=== PATIENT | female | born 1965 | race Two or more races ===

== ENCOUNTER 2022-10-09 10:30 | Inpatient (IN) | payer OTHER ==
[~2022-10-09] VITALS: Ht 175.3 cm; Wt 97.5 kg
[2022-10-09] MEDS ORDERED: ORAPRED ODT10 MG PO (13:30)
[2022-10-09] MEDS ORDERED: COZAAR100 MG PO (13:30)
[2022-10-09] MEDS ORDERED: SINGULAIR 10MG10 MG PO (13:31)
[2022-10-12] MEDS ORDERED: LEVOTHYROXINE125 MCG (07:52)
[2022-10-12] MEDS ORDERED: PREDNISONE2.5 MG (07:52)
== END 2022-10-13 13:25 | disposition home or self-care (01) | DRG 742 ==
LOC: ADM 10:30 → EDSTATUS 10:30 → O/R 10-11 05:50 → OB/GYN 10-11 05:50 → SURG 10-11 07:00 → OB/GYN 10-11 11:46
PROVIDERS: ADMIT Specialist; ATTEND Specialist
PROC: 0UT70ZZ Resection of Bilateral Fallopian Tubes, Open Approach (ICD-10-PCS; 2022-10-11)
PROC: 0UT20ZZ Resection of Bilateral Ovaries, Open Approach (ICD-10-PCS; 2022-10-11)
PROC: 07BC0ZZ Excision of Pelvis Lymphatic, Open Approach (ICD-10-PCS; 2022-10-11)
PROC: 0WBH0ZZ Excision of Retroperitoneum, Open Approach (ICD-10-PCS; 2022-10-11)
PROC: 3E1M38Z Irrigation of Peritoneal Cavity using Irrigating Substance, Percutaneous Approach (ICD-10-PCS; 2022-10-11)
PROC: 0UT90ZZ Resection of Uterus, Open Approach (ICD-10-PCS; principal; 2022-10-11 07:00)
DX: D25.1 Intramural leiomyoma of uterus (principal); C48.0 Malignant neoplasm of retroperitoneum; Z20.822 Contact with and (suspected) exposure to COVID-19; N80.03 Adenomyosis of the uterus